=== PATIENT | female | born 1970 | race Caucasian/White ===

== ENCOUNTER → 2022-05-05 | Day surgery (SDC) | payer OTHER ==
[~2022-05-05] MED LIST: ALEVE220 M1 PO; BACLOFEN10 MG PO; BUSPIRONE HCL10 MG PO; FENTANYL CITRATE/PF 100MCG/2 ML INJ ONE; FLUOXETINE HCL20 M1 PO; MELATONIN3 MG PO; MIDAZOLAM HCL 2 MG/2 ML VIAL ONE; TRAZODONE HCL50 MG PO; TYLENOL325 MG PO; VIT D PO
[2022-05-05 15:35] VITALS: BP 119/75
== END | disposition home or self-care (01) ==
LOC: OR 11:08
PROVIDERS: ATTEND Internal Medicine Gastroenterology
DX: Z12.11 Encounter for screening for malignant neoplasm of colon (principal); K64.8 Other hemorrhoids; G47.33 Obstructive sleep apnea (adult) (pediatric); I10 Essential (primary) hypertension; I89.8 Other specified noninfective disorders of lymphatic vessels and lymph nodes; R53.1 Weakness; M19.90 Unspecified osteoarthritis, unspecified site; M54.2 Cervicalgia; M54.9 Dorsalgia, unspecified; K76.0 Fatty (change of) liver, not elsewhere classified; E66.9 Obesity, unspecified; F32.A Depression, unspecified; F41.9 Anxiety disorder, unspecified; K27.9 Peptic ulcer, site unspecified, unspecified as acute or chronic, without hemorrhage or perforation; K44.9 Diaphragmatic hernia without obstruction or gangrene; F17.290 Nicotine dependence, other tobacco product, uncomplicated; Z88.0 Allergy status to penicillin; Z01.810 Encounter for preprocedural cardiovascular examination; Z01.812 Encounter for preprocedural laboratory examination; Z20.822 Contact with and (suspected) exposure to COVID-19; Z68.39 Body mass index [BMI] 39.0-39.9, adult
CPT/HCPCS: 0223U; 36415; 45378; 93005; J2250; J3010